=== PATIENT | male | born 1960 | race Caucasian/White ===

== ENCOUNTER 2017-02-21 14:08 | Inpatient (IN) ==
[2017-02-21] MEDS ORDERED: ZOFRAN IV PRN (16:55)
[2017-02-21] MEDS ORDERED: NS 1,000 ML IV ONE (16:55)
[2017-02-21] MEDS ORDERED: NS 1,000 ML IV SCH (16:55)
[2017-02-21] MEDS ORDERED: DESYREL PO PRN (18:09)
[2017-02-21] MEDS ORDERED: PROTONIX IV SCH (18:15)
[2017-02-21 18:29] LABS: MANUAL DIFF NEEDED? NO
[2017-02-21 18:32] LABS: URINE CULTURE NEEDED? NO; URINE MICRO REVIEW NEEDED? YES; URINE SOURCE CLEAN CATCH
[2017-02-21 18:32] LABS: EOS# 0.06 X1000 (0.0-0.7); EOS% 1.2 % (0.0-10.0); HEMATOCRIT 31.2 % (42.0-52.0); LYMPH# 0.46 X1000 (1.2-3.4); LYMPH% 9.2 % (20.5-51.1); MCHC 35.3 g/dL (33-37); MCV 96.3 FL (81-99); MONO# 0.42 X1000 (0.11-0.59); MONO% 8.4 % (1.7-9.3); MPV 9.5 FL (7.4-10.4); NEUT% 80.2 % (42.2-75.2); PLT 269 X1000 (130-400); RBC 3.24 XMIL (4.7-6.1)
[2017-02-21 18:36] LABS: BILIRUBIN URINE SMALL (NEGATIVE); BLOOD URINE NEGATIVE (NEGATIVE); COLOR ORANGE; GLUCOSE URINE NEGATIVE (NEGATIVE); LEUKOCYTES URINE NEGATIVE (NEGATIVE); NITRITE URINE NEGATIVE (NEGATIVE); PH URINE 5.5; PROTEIN URINE 30 mg/dL (NEGATIVE); SP GRAVITY URINE 1.022; TURBIDITY URINE CLEAR (CLEAR); UR EPITHELIAL CELLS <10 /HPF (<10); URINE BACTERIA NEGATIVE /HPF; URINE RBC <10 /HPF (<10); URINE WBC <10 /HPF (<10); UROBILINOGEN URINE 3 mg/dL (NORMAL)
[2017-02-21 18:45] LABS: INR 1.2; PROTIME 12.7 Seconds (9.2-11.7)
[2017-02-21 18:47] LABS: URINE CASTS GRANULAR PRESENT; URINE CRYSTALS NONE SEEN; URINE SMALL ROUND CELLS NONE SEEN
[2017-02-21 18:55] LABS: CALCIUM 8.7 mg/dL (8.8-10.2); MAGNESIUM 1.7 mg/dL (1.5-2.7); POTASSIUM 3.7 mmol/L (3.5-5.1); TOTAL BILIRUBIN 0.43 mg/dL (0.20-1.00); TOTAL PROTEIN 6.6 g/dL (6.3-8.3)
[2017-02-21] MEDS: CLINIMIX E 4.25%-5% SOLUTION 1,000 ML IV SCH (19:01)
[2017-02-21] MEDS: NICODERM PATCH TD SCH (19:03)
[2017-02-21] MEDS: DUONEB (A & A) INH SCH ×2 (19:43→23:14)
[2017-02-21 21:27] LABS: UR CREAT RANDOM 307.9 mg/dL (14-26)
[2017-02-21] MEDS: LOVENOX SUBQ SCH (21:59)
[2017-02-22] MEDS: DUONEB (A & A) INH SCH ×6 (05:26→23:25)
[2017-02-22 07:04] LABS: HEMATOCRIT 28.1 % (42.0-52.0); HEMOGLOBIN 9.7 g/dL (14.0-18.0); MCHC 34.5 g/dL (33-37); MCV 98.6 FL (81-99); MPV 9.4 FL (7.4-10.4); RBC 2.85 XMIL (4.7-6.1)
[2017-02-22 07:21] LABS: CALCIUM 8.1 mg/dL (8.8-10.2); POTASSIUM 3.3 mmol/L (3.5-5.1)
[2017-02-22] MEDS ORDERED: LOVENOX SUBQ SCH (09:00)
[2017-02-22] MEDS: NORVASC PO SCH (09:27)
[2017-02-22] MEDS: ASPIRIN EC PO SCH (09:27)
[2017-02-22] MEDS: CLINIMIX E 4.25%-5% SOLUTION 1,000 ML IV SCH ×2 (09:27→21:11)
[2017-02-22] MEDS: FLOMAX PO SCH (09:27)
[2017-02-22] MEDS: PLAVIX PO SCH (09:28)
[2017-02-22] MEDS: PRAVACHOL PO SCH (09:28)
[2017-02-22] MEDS: NICODERM PATCH TD SCH (09:28)
[2017-02-22] MEDS: PROTONIX IV SCH (16:55)
[2017-02-22] MEDS: SODIUM CHLORIDE 0.9% INJ SCH (16:55)
[2017-02-22] MEDS ORDERED: NS 1,000 ML IV SCH (20:47)
[2017-02-22] MEDS ORDERED: D5 NS 1,000 ML IV SCH (21:04)
[2017-02-23] MEDS: DUONEB (A & A) INH SCH ×6 (03:26→22:50)
[2017-02-23] MEDS: PROTONIX IV SCH ×2 (05:39→16:08)
[2017-02-23] MEDS: SODIUM CHLORIDE 0.9% INJ SCH (05:39)
[2017-02-23 06:36] LABS: HEMATOCRIT 28.5 % (42.0-52.0); MCH 34.6 PG (27-31); MCHC 35.1 g/dL (33-37); MCV 98.6 FL (81-99); MPV 9.7 FL (7.4-10.4); RBC 2.89 XMIL (4.7-6.1)
[2017-02-23 06:47] LABS: AGAP 11; BUN 28 mg/dL (8-22); CALCIUM 8.5 mg/dL (8.8-10.2); CHLORIDE 98 mmol/L (98-107); COSMO 284; SODIUM 139 mmol/L (136-145); TCO2 30 mmol/L (25-35)
[2017-02-23] MEDS: CLINIMIX E 4.25%-5% SOLUTION 1,000 ML IV SCH ×2 (07:00→18:34)
[2017-02-23] MEDS ORDERED: MAGNESIUM SULFATE 2 GM/S.W.I. 2 GM/50 ML IVPB IV ONE (08:13)
[2017-02-23] MEDS ORDERED: POTASSIUM CHLORIDE 20 MEQ in NS 100 ML IV SCH (09:00)
[2017-02-23] MEDS: FLOMAX PO SCH (09:19)
[2017-02-23] MEDS: PRAVACHOL PO SCH (09:19)
[2017-02-23] MEDS: NORVASC PO SCH (09:19)
[2017-02-23] MEDS: POTASSIUM CHLORIDE 20 MEQ in NS 100 ML IV SCH ×2 (09:20→13:10)
[2017-02-23] MEDS: NICODERM PATCH TD SCH (09:20)
[2017-02-23] MEDS: LIPOSYN 20% 250 ML IV SCH (16:00)
[2017-02-24] MEDS: DUONEB (A & A) INH SCH ×6 (03:17→22:37)
[2017-02-24] MEDS: PROTONIX IV SCH ×2 (03:18→14:46)
[2017-02-24] MEDS: CLINIMIX E 4.25%-5% SOLUTION 1,000 ML IV SCH ×3 (03:18→23:28)
[2017-02-24] MEDS: SODIUM CHLORIDE 0.9% INJ SCH ×2 (03:18→14:46)
[2017-02-24 06:55] LABS: HEMATOCRIT 29.6 % (42.0-52.0); HEMOGLOBIN 10.5 g/dL (14.0-18.0); MCHC 35.5 g/dL (33-37); MCV 98.7 FL (81-99); MPV 9.6 FL (7.4-10.4)
[2017-02-24 07:40] LABS: AGAP 13; BUN 26 mg/dL (8-22); CALCIUM 8.8 mg/dL (8.8-10.2); CHLORIDE 95 mmol/L (98-107); COSMO 280; POTASSIUM 3.6 mmol/L (3.5-5.1); SODIUM 137 mmol/L (136-145); TCO2 29 mmol/L (25-35)
[2017-02-24] MEDS ORDERED: XYLOCAINE-MPF 2% ONE (11:45)
[2017-02-24] MEDS ORDERED: DIPRIVAN 1% ONE (11:45)
[2017-02-24] MEDS ORDERED: FENTANYL ONE (11:54)
[2017-02-24] MEDS: LIPOSYN 20% 250 ML IV SCH ×2 (12:45→13:42)
[2017-02-24] MEDS ORDERED: DILAUDID IV PRN (13:44)
[2017-02-24] MEDS: DILAUDID IV PRN ×3 (14:05→21:37)
[2017-02-24] MEDS: PRAVACHOL PO SCH ×2 (21:41→21:48)
[2017-02-24] MEDS: FLOMAX PO SCH ×2 (21:41→21:48)
[2017-02-24] MEDS: NORVASC PO SCH (21:41)
[2017-02-24] MEDS: NICODERM PATCH TD SCH (21:42)
[2017-02-25] MEDS: DILAUDID IV PRN ×3 (03:20→14:05)
[2017-02-25] MEDS: DUONEB (A & A) INH SCH ×6 (03:23→22:40)
[2017-02-25] MEDS: PROTONIX IV SCH ×2 (04:09→18:53)
[2017-02-25] MEDS: SODIUM CHLORIDE 0.9% INJ SCH (04:09)
[2017-02-25 07:00] LABS: MANUAL DIFF NEEDED? NO
[2017-02-25 07:17] LABS: BASO% 0.3 % (0.0-0.8); EOS# 0.16 X1000 (0.0-0.7); EOS% 2.4 % (0.0-10.0); HEMATOCRIT 30.7 % (42.0-52.0); HEMOGLOBIN 10.7 g/dL (14.0-18.0); LYMPH# 0.32 X1000 (1.2-3.4); LYMPH% 4.7 % (20.5-51.1); MCH 33.9 PG (27-31); MCHC 34.9 g/dL (33-37); MCV 97.2 FL (81-99); MONO# 0.59 X1000 (0.11-0.59); MONO% 8.7 % (1.7-9.3); MPV 9.9 FL (7.4-10.4); NEUT% 83.9 % (42.2-75.2); PLT 238 X1000 (130-400); RBC 3.16 XMIL (4.7-6.1)
[2017-02-25 07:48] LABS: AGAP 6; BUN 28 mg/dL (8-22); CALCIUM 9.4 mg/dL (8.8-10.2); CHLORIDE 90 mmol/L (98-107); COSMO 270; POTASSIUM 4.7 mmol/L (3.5-5.1); SODIUM 132 mmol/L (136-145); TCO2 36 mmol/L (25-35)
[2017-02-25] MEDS: PRAVACHOL PO SCH (11:37)
[2017-02-25] MEDS: NORVASC PO SCH (11:37)
[2017-02-25] MEDS: NICODERM PATCH TD SCH (11:38)
[2017-02-25] MEDS: FLOMAX PO SCH (11:38)
[2017-02-25] MEDS: CLINIMIX E 4.25%-5% SOLUTION 1,000 ML IV SCH (11:45)
[2017-02-25] MEDS ORDERED: FLOMAX PO ONE (14:00)
[2017-02-25] MEDS: PROSCAR PO SCH (14:36)
[2017-02-25 14:49] LABS: MAGNESIUM 1.8 mg/dL (1.5-2.7)
[2017-02-25] MEDS ORDERED: PHENERGAN PO PRN (18:05)
[2017-02-25] MEDS: LIPOSYN 20% 250 ML IV SCH (18:51)
[2017-02-25] MEDS ORDERED: NORCO-7.5 PO PRN (21:32)
[2017-02-25] MEDS: CARAFATE PO SCH (22:07)
[2017-02-25] MEDS: PREVACID SOLUTAB PO SCH (22:15)
[2017-02-25] MEDS: LOVENOX SUBQ SCH (22:16)
[2017-02-26] MEDS: DUONEB (A & A) INH SCH ×6 (03:14→23:13)
[2017-02-26 07:28] LABS: MAGNESIUM 1.5 mg/dL (1.5-2.7)
[2017-02-26 07:33] LABS: AGAP 9; ALBUMIN 3.1 g/dL (3.5-5.0); ALKALINE PHOSPHATASE 52 U/L (32-122); BUN 26 mg/dL (8-22); CHLORIDE 90 mmol/L (98-107); COSMO 266; GOT 8 U/L (10-34); GPT 9 U/L (10-44); POTASSIUM 4.1 mmol/L (3.5-5.1); SODIUM 130 mmol/L (136-145); TCO2 31 mmol/L (25-35); TOTAL BILIRUBIN 0.78 mg/dL (0.20-1.00)
[2017-02-26] MEDS: ASPIRIN EC PO SCH (09:37)
[2017-02-26] MEDS: FLOMAX PO SCH (09:38)
[2017-02-26] MEDS: PROSCAR PO SCH (09:38)
[2017-02-26] MEDS: CARAFATE PO SCH ×4 (09:38→21:57)
[2017-02-26] MEDS: NICODERM PATCH TD SCH (09:39)
[2017-02-26] MEDS: PRAVACHOL PO SCH (09:39)
[2017-02-26] MEDS: NORVASC PO SCH (09:39)
[2017-02-26] MEDS: PLAVIX PO SCH (09:39)
[2017-02-26] MEDS: PREVACID SOLUTAB PO SCH ×2 (09:39→21:54)
[2017-02-26] MEDS ORDERED: SAMSCA PO ONE (10:18)
[2017-02-26] MEDS: LOVENOX SUBQ SCH (19:51)
[2017-02-27] MEDS: DUONEB (A & A) INH SCH ×3 (03:10→11:34)
[2017-02-27 07:27] LABS: AGAP 9; BUN 19 mg/dL (8-22); CHLORIDE 95 mmol/L (98-107); COSMO 271; POTASSIUM 4.2 mmol/L (3.5-5.1); SODIUM 133 mmol/L (136-145); TCO2 29 mmol/L (25-35)
[2017-02-27 08:13] VITALS: BP 114/73
[2017-02-27] MEDS: CARAFATE PO SCH ×2 (09:12→12:17)
[2017-02-27] MEDS: PLAVIX PO SCH (10:01)
[2017-02-27] MEDS: PREVACID SOLUTAB PO SCH (10:01)
[2017-02-27] MEDS: ASPIRIN EC PO SCH (10:01)
[2017-02-27] MEDS: PRAVACHOL PO SCH (10:02)
[2017-02-27] MEDS: PROSCAR PO SCH (10:02)
[2017-02-27] MEDS: NORVASC PO SCH (10:02)
[2017-02-27] MEDS: NICODERM PATCH TD SCH (10:03)
[2017-02-27] MEDS: FLOMAX PO SCH (10:03)
== END 2017-02-27 14:02 | disposition home or self-care (01) ==
LOC: DIRADM 14:08 → 3N 15:16
PROVIDERS: ATTEND Internal Medicine